=== PATIENT | female | born 1960 | race Hispanic/Latino ===

== ENCOUNTER 2023-12-18 03:43 | Emergency (ER) | payer MEDICARE ==
[~2023-12-18] VITALS: Ht 160 cm; Wt 82.6 kg
[2023-12-18 03:45] VITALS: TEMP 97.7
[2023-12-18 04:20] LABS: BASOPHILS # (AUTO) 0.05 K/uL (0.00-0.20); BASOPHILS % (AUTO) 0.7 % (0.0-5.0); EOSINOPHILS # (AUTO) 0.17 K/uL (0.00-0.70); EOSINOPHILS % (AUTO) 2.3 % (0.0-8.0); HEMATOCRIT 40.5 % (36-48); IMMATURE GRANULOCYTE ABSOLUTE 0.02 K/uL (0-1); LYMPHOCYTES # (AUTO) 2.2 K/uL (1.0-4.8); LYMPHOCYTES % (AUTO) 29.5 % (21.0-51.0); MEAN CORPUSCULAR HEMOGLOBIN 26.9 pg (27.0-33.0); MEAN CORPUSCULAR HGB CONC 33.6 g/dL (32.0-36.0); MEAN CORPUSCULAR VOLUME 80.2 fL (79-99); MONOCYTES # (AUTO) 0.5 K/uL (0.1-1.0); MONOCYTES % (AUTO) 6.7 % (3.0-13.0); NEUTROPHILS # (AUTO) 4.5 K/uL (1.8-7.7); NEUTROPHILS % (AUTO) 60.5 % (40.0-77.0); PLATELET COUNT (AUTO) 314 K/uL (130-400); RED BLOOD CELL COUNT(AUTO) 5.05 MIL/uL (4.00-5.50); RED CELL DISTRIBUTION WIDTH 12.8 % (11.0-15.5); WHITE BLOOD COUNT (AUTO) 7.5 K/uL (4.8-10.8)
[2023-12-18] MEDS: LACTATED RINGERS 1000ML 1,000 ML IV ONE (04:22)
[2023-12-18] MEDS: PANTOPrazole 40 MG/VIAL IVP ONE (04:22)
[2023-12-18 04:28] LABS: CREATININE 0.7 mg/dL (0.5-1.0); POTASSIUM 3.6 mmol/L (3.5-5.1)
[2023-12-18 04:30] LABS: INR <= 0.93 (0.85-1.15); PROTHROMBIN TIME 10.1 SEC (9.6-11.6)
[2023-12-18 04:31] LABS: PARTIAL THROMBOPLASTIN TIME 26.7 SEC (26.3-35.5)
[2023-12-18 04:33] LABS: MAGNESIUM 1.9 mg/dL (1.80-2.40)
[2023-12-18 05:16] LABS: B-TYPE NATRIURETIC PEPTIDE 58 pg/mL (0-100)
[2023-12-18 06:32] LABS: APPEARANCE,URINE CLEAR (CLEAR); BILIRUBIN,URINE NEGATIVE (NEGATIVE); COLOR,URINE LIGHT-YELLOW (YELLOW); GLUCOSE, URINE (UA) NEGATIVE (NEGATIVE); KETONES,URINE NEGATIVE (NEGATIVE); LEUKOCYTE ESTERASE ,URINE NEGATIVE Leu/uL (NEGATIVE); NITRATE,URINE NEGATIVE (NEGATIVE); OCCULT BLOOD,URINE NEGATIVE (NEGATIVE); PH,URINE 5.5 (5.0-8.0); PROTEIN,URINE NEGATIVE (NEGATIVE); UROBILINOGEN,URINE 0.2 mg/dL (0.2-1.0)
[2023-12-18 06:39] LABS: ADD UA MICROSCOPIC NO
[2023-12-18] MEDS ORDERED: PANT40TA55 PO (06:45)
[2023-12-18 06:58] VITALS: BP 127/60; PULSE 55; RESP 18; O2SAT 96
== END 2023-12-18 07:11 | disposition home or self-care (01) ==
LOC: EDH 03:43
DX: K21.9 Gastro-esophageal reflux disease without esophagitis (principal); E86.0 Dehydration; E11.9 Type 2 diabetes mellitus without complications; E78.00 Pure hypercholesterolemia, unspecified; M19.90 Unspecified osteoarthritis, unspecified site
CPT/HCPCS: 99285; 96374; 71045; 96361; 82550; 83735; 84484 ×2; 80048; 83880; 85025; 85610; 85730; 81003; 36415; 93005; J7120; J2470

== ENCOUNTER 2025-01-13 22:28 | Emergency (ER) | payer MEDICARE, OTHER ==
[~2025-01-13] VITALS: Ht 160 cm; Wt 85.7 kg
[~2025-01-13 22:28] MED LIST: PANT40TA55 PO
[2025-01-13 22:59] LABS: IMMATURE GRANULOCYTE ABSOLUTE 0.05 K/uL (0-1); NUCLEATED RED BLOOD CELLS 0.0 % (0.0-0.19); PLATELET COUNT (AUTO) 295 K/uL (130-400); RED BLOOD CELL COUNT(AUTO) 4.80 MIL/uL (4.00-5.50); RED CELL DISTRIBUTION WIDTH 13.0 % (11.0-15.5); WHITE BLOOD COUNT (AUTO) 8.9 K/uL (4.8-10.8)
[2025-01-13 23:13] LABS: CREATININE 0.8 mg/dL (0.5-1.0); GLOMERULAR FILTR. RATE CALC 83.0 mL/min (>90); GLUCOSE,RANDOM 155.0 mg/dL (70-105); SODIUM SERUM 134.0 mmol/L (136-145); UREA NITROGEN, BLOOD 18.0 mg/dL (7-18)
[2025-01-13 23:16] LABS: INR 0.96 (0.85-1.15)
[2025-01-13 23:17] LABS: APPEARANCE,URINE CLEAR (CLEAR); GLUCOSE, URINE (UA) NEGATIVE (NEGATIVE); LEUKOCYTE ESTERASE ,URINE NEGATIVE Leu/uL (NEGATIVE); NITRATE,URINE NEGATIVE (NEGATIVE); OCCULT BLOOD,URINE NEGATIVE (NEGATIVE)
[2025-01-13 23:21] LABS: ADD UA MICROSCOPIC NO
--- NOTE | 2025-01-13 23:23 | HMCIMG ---
EXAM: CR Chest, 1 view. CLINICAL HISTORY: Chest pain. COMPARISON: None. FINDINGS: The lungs show no infiltration or other acute findings. Mild prominence of bilateral bronchovascular markings. No pleural effusion or pneumothorax. The cardio mediastinal silhouette is within normal limits. No acute osseous abnormality. Fixation hardware in the lower cervical spine. IMPRESSION: Mild prominence of bilateral bronchovascular markings could be secondary to bronchitis or vascular congestion. /[place]
[2025-01-13] MEDS ORDERED: IOHEXOL-350 50ML VIAL IV ONE (23:39)
[2025-01-14] MEDS ORDERED: IOHEXOL-350 75 ML VIAL IV ONE (00:23)
[2025-01-14] MEDS ORDERED: IOHEXOL-350 50ML VIAL IV ONE (00:24)
--- NOTE | 2025-01-14 00:39 | ERN ---
General Chief Complaint: Palpitations Stated Complaint: C/O PALPITATIONS Time Seen by MD: 22:35 History of Present Illness Initial Comments 64-year-old female history of diabetes presents for palpitations. Patient reports that over the last month or so she has had multiple episodes of palpitations in the center of the chest. Today she had an episode that lasted about an hour. She had chest pain with it. She felt dizzy. She had felt some pain in the left arm. Symptoms have resolved. She went to her primary doctor to get worked up for this recently, and she was referred to Cardiology as an outpatient. She denies any weight loss, fevers, vomiting, diarrhea, syncopal episodes, or swelling. Denies any drug abuse. Denies anxiety symptoms. Allergies: Coded Allergies: No Known Allergies (Unverified Allergy, Unknown, 12/18/23) Home Meds Active Scripts Pantoprazole Sodium (Protonix) 40 Mg Ectab, 40 MG PO DAILY for 30 Days, #30 TAB.EC Prov:SHWETA OLIVARES MD 12/18/23 Past Medical History Past Medical History: Diabetes-Type II Past Surgical History: None ROS Dictation CONSTITUTIONAL: No chills, no fever, no weakness, no diaphoresis, no malaise. HEAD/FACE: No signs of trauma. EENT: No eye pain, no blurred vision, no tearing, no double vision, no ear pain, no ear discharge, no nose pain, no nasal congestion, no throat pain, no throat swelling, no mouth pain. RESPIRATORY: No cough, no orthopnea, no SOB, no stridor, no wheezing. CARDIOVASCULAR: Palpitation GASTROINTESTINAL/ABDOMINAL: No abdominal pain, no constipation, no diarrhea, no nausea, no vomiting. GENITOURINARY: No abnormal discharge, no dysuria, no frequent urination, no hematuria. No complaints of pain in the genitals. MUSCULOSKELETAL: No back pain, no gout, no joint pain, no joint swelling, no muscle pain, no muscle stiffness, no neck pain. INTEGUMENTARY: No change in color, no change in hair/nails, no dryness, no lesion, no lumps, no rash. NEUROLOGICAL/PSYCH: No anxiety, not depressed, no emotional problem, no headache, no numbness, no pre-existing deficit, no history of seizures, no tremors, no weakness. HEMATOLOGIC/LYMPHATIC: Not anemic, no history of blood clots, no apparent b leeding, no bruising, glands not swollen. All Systems Negative, Except as Noted. Physical Exam Physical Exam Dictation VITAL SIGNS: Reviewed. GENERAL APPEARANCE: Alert, oriented x3, no acute distress, obese. HEAD AND FACE: Non-traumatic. EYES: PERRL, pink conjunctivas, eyelid no trauma, anterior chamber clear. EARS: Pinnas intact and no signs of trauma or erythema. Ear canals clear and no discharge. TMs no erythema. NOSE: No discharge, no bleeding. OROPHARYNX: Mouth normal, teeth no caries, tongue pink. Pharynx clear, no erythema. Tonsils no exudates, no abscesses noted. Mucous membrane moist. NECK: Supple, non-tender, no thyromegaly, no masses, no JVD, no bruits. BREAST: Deferred. CHEST: No tenderness, no crepitus, no paradoxical movement, no retractions. LUNGS: Clear, well-ventilated, symmetric, no rales, no wheezing, no rhonchi, no stridor, good breath sounds bilaterally. HEART: Regular rate, regular rhythm, no murmur, no gallops. VASCULAR: No peripheral edema. ABDOMEN: Soft, positive bowel sounds, nondistended, no guarding, nontender, no rebound, no masses no hepatomegaly, no splenomegaly, no Ag's sign, no hernias. RECTAL: Deferred. GENITAL: Deferred. NEUROLOGICAL: Normal speech, gross motor function intact, gross sensory function intact. MUSCULOSKELETAL: Neck nontender, full range of motion, back nontender, full ra nge of motion. EXTREMITIES: Nontender, full range of motion. SKIN: Color pink, dry, no turgor, no rash, no lacerations, no abrasions, no contusions. LYMPHATICS: Deferred. Results Laboratory and Microbiology Lab and Micro Result Laboratory Tests Test 01/13/25 22:42 01/13/25 23:04 01/14/25 00:45 White Blood Count 8.9 K/uL (4.8-10.8) Red Blood Count 4.80 MIL/uL (4.00-5.50) Hemoglobin 12.7 g/dL (12.0-16.0) Hematocrit 38.2 % (36-48) Mean Corpuscular Volume 79.6 fL (79-99) Mean Corpuscular Hemoglobin 26.5 pg (27.0-33.0) L Mean Corpuscular Hemoglobin Concent 33.2 g/dL (32.0-36.0) Red Cell Distribution Width 13.0 % (11.0-15.5) Platelet Count 295 K/uL (130-400) Mean Platelet Volume 10.0 fL (7.5-10.5) Immature Granulocyte % (Auto) 0.6 % (0-1) Neutrophils (%) (Auto) 58.4 % (40.0-77.0) Lymphocytes (%) (Auto) 31.4 % (21.0-51.0) Monocytes (%) (Auto) 7.1 % (3.0-13.0) Eosinophils (%) (Auto) 1.8 % (0.0-8.0) Basophils (%) (Auto) 0.7 % (0.0-5.0) Neutrophils # (Auto) 5.2 K/uL (1.8-7.7) Lymphocytes # (Auto) 2.8 K/uL (1.0-4.8) Monocytes # (Auto) 0.6 K/uL (0.1-1.0) Eosinophils # (Auto) 0.16 K/uL (0.00-0.70) Basophils # (Auto) 0.06 K/uL (0.00-0.20) Absolute Immature Granulocyte (auto 0.05 K/uL (0-1) Nucleated Red Blood Cells 0.0 % (0.0-0.19) Erythrocyte Sedimentation Rate 39 MM/HR (0-30) H Prothrombin Time 10.2 SEC (9.6-11.6) Prothromb Time International Ratio 0.96 (0.85-1.15) Activated Partial Thromboplast Time 26.5 SEC (26.3-35.5) D-Dimer Quantitative (PE/DVT) 548 ng/mL (0-500) *H Sodium Level 134 mmol/L (136-145) L Potassium Level 3.7 mmol/L (3.5-5.1) Chloride Level 100 mmol/L (101-111) L Carbon Dioxide Level 28 mmol/L (21-32) Blood Urea Nitrogen 18 mg/dL (7-18) Creatinine 0.8 mg/dL (0.5-1.0) Glomerular Filtration Rate Calc 83 mL/min (>90) Random Glucose 155 mg/dL (70-105) H Total Calcium 8.6 mg/dL (8.5-10.1) Magnesium Level 1.80 mg/dL (1.80-2.40) Troponin I High Sensitivity 6 ng/L (4-50) 8 ng/L (4-50) C-Reactive Protein, Quantitative 16.80 mg/L (0.5-3.0) H B-Type Natriuretic Peptide 53 pg/mL (0-100) Thyroid Stimulating Hormone (TSH) 2.75 uIU/mL (0.36-3.74) Urine Color COLORLESS (YELLOW) Urine Appearance CLEAR (CLEAR) Urine pH 6.0 (5.0-8.0) Urine Specific [place] 1.002 (1.001-1.031) Urine Protein NEGATIVE mg/dL (NEGATIVE) Urine Glucose (UA) NEGATIVE mg/dL (NEGATIVE) Urine Ketones NEGATIVE mg/dL (NEGATIVE) Urine Occult Blood NEGATIVE (NEGATIVE) Urine Nitrate NEGATIVE (NEGATIVE) Urine Bilirubin NEGATIVE mg/dL (NEGATIVE) Urine Urobilinogen 0.2 mg/dL (0.2-1.0) Urine Leukocyte Esterase NEGATIVE Fabricio/uL MDM CC: Palpitations, chest discomfort, dizziness, intermittent episodes Historian: Patient Comorbidities: Diabetes Limitations by social determinants of health: None Differential diagnosis: Arrhythmia, thyroid abnormality, electrolyte abnormality, anemia, ACS, pulmonary embolism, other EKG: Sinus rhythm, rate 73, normal axis, good R-wave progression, intervals are stable. No STEMI. Independently interpreted by me. Labs: No leukocytosis, no anemia. Coags are stable. Electrolytes are unremarkable. CRP and sed rate are mildly elevated. Thyroid normal. BNP normal. Troponin x2 normal. Urinalysis normal. Chest x-ray is unremarkable per my independent interpretation. CT angiogram unremarkable for pulmonary embolus. No major abnormalities. Patient was monitored on telemetry for about 3 hours. No further episodes. Pain-free. Asymptomatic. No signs of ACS. HEART score 2, normal troponins. I suspect the patient may be happened night paroxysmal arrhythmia. Does not appear to be life-threatening at this time. Patient is already being worked up as an outpatient. She has a scheduled appointment with [facility] cardiology. We will discharge the patient recommend she follows up with this. We will recommend return to the emergency department as needed. ED Course Orders Procedure Category Date Status Time 12 Lead Ekg Tracing- EKG 01/13/25 Logged Technical 22:38 Cbc With Differential LAB 01/13/25 Complete 22:40 Prothrombin Time With LAB 01/13/25 Complete INR 22:40 Chest 1vw RAD 01/13/25 Resulted 22:40 12 Lead Ekg Tracing- EKG 01/13/25 Logged Technical 22:40 Magnesium LAB 01/13/25 Complete 22:40 Troponin I High LAB 01/13/25 Complete Sensitivity 22:40 Partial LAB 01/13/25 Complete Thromboplastin Time 22:40 Basic Metabolic Panel LAB 01/13/25 Complete 22:40 B-Type Natriuretic LAB 01/13/25 Complete Peptide 22:40 D-Dimer LAB 01/13/25 Complete 22:58 Erythrocyte Sed Rate LAB 01/13/25 Complete 22:58 Crp Quantitative LAB 01/13/25 Complete 22:42 Thyroid Stimulating LAB 01/13/25 Complete Hormone 22:42 Urinalysis Profile LAB 01/13/25 Complete 23:10 Ct Chest Pe Protocol CT 01/13/25 Resulted Wwo Cont 23:39 Iohexol (Omnipaque) PHA 01/14/25 Complete 00:23 Iohexol (Omnipaque) PHA 01/14/25 Complete 00:24 Troponin I High LAB 01/14/25 Complete Sensitivity 00:35 Lorazepam 2 Mg PHA 01/14/25 Complete (Ativan) 01:00 Current Medications Medications (Trade) Dose Ordered Sig/Mathew Route PRN Reason Start Time Stop Time Status Last Admin Dose Admin Iohexol (Omnipaque) 50 ml STK-MED ONCE IV 01/14/25 00:24 01/14/25 00:25 DC Iohexol (Omnipaque) 75 ml STK-MED ONCE IV 01/14/25 00:23 01/14/25 00:23 DC Lorazepam (AtiVAN) 1 mg ONCE ONCE IVP 01/14/25 01:00 01/14/25 01:03 DC 01/14/25 01:07 Vital Signs Date Time Temp Pulse Resp B/P (MAP) Pulse Ox O2 Delivery O2 Flow Rate FiO2 01/13/25 22:42 98.8 75 18 128/66 98 Room Air* 0 21 01/13/25 22:30 97.3 89 20 169/70 99 Room Air DX & DISP Disposition: Discharge Departure Impression: Primary Impression: Palpitations Condition: Stable Additional Instructions: There are no dangerous findings on your workup here today. Your EKG is normal. You have had no signs of arrhythmias here in the emergency department. Your blood work (CBC with differential, metabolic panel, magnesium level, thyroid studies, troponin x2, coagulation studies) is unremarkable. Your inflammatory markers (CRP, ESR, D-dimer) is mildly elevated. There are no other signs of infection or major abnormalities. Chest x-ray is normal. The CT angiogram of your chest is unremarkable. As we discussed, continue with your outpatient workup. You likely need a referral to Cardiology, and evaluation with a Holter monitor. Please return to the emergency department if you have any concerning symptoms such as severe pain, episodes of passing out, prolonged episodes of palpitations with the chest pain, or any other concerning symptom. Referrals: JOSUE ZAARGOZA MD (PCP) KAEL PIMENTEL DO Jan 14, 2025 00:39
--- NOTE | 2025-01-14 02:17 | HMCIMG ---
EXAM: CTA examination of the chest without and with contrast. CLINICAL HISTORY: Rule out pulmonary embolism. TECHNIQUE: Thin collimated axial CTA images of the chest were obtained, and sagittal and coronal reformatted images were also submitted. CT scan is done according to ALARA (As Low as Reasonably Achievable). COMPARISON: None provided. FINDINGS: The lungs are clear. No pleural effusions. No pericardial effusion. The heart size is within normal limits. No thoracic aortic aneurysm or dissection. No filling defect or pulmonary thromboembolism. No axillary, supraclavicular, or mediastinal lymphadenopathy. Mildly elevated right hemidiaphragm. Limited views of the upper abdomen demonstrate a lobulated hepatic contour and hepatic asteatosis, concerning chronic liver parenchymal disease. No acute or suspicious osseous abnormality. IMPRESSION: No pulmonary thromboembolism. No acute cardiopulmonary process. Limited views of the upper abdomen demonstrate a lobulated hepatic contour and hepatic asteatosis, concerning chronic liver parenchymal disease. /[place]
[2025-01-14 02:27] VITALS: BP 139/65; PULSE 70; RESP 18; TEMP 98.8; O2SAT 100
--- NOTE | 2025-01-14 04:36 | EKG ---
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
== END 2025-01-14 02:35 | disposition home or self-care (01) ==
LOC: EDH 22:28
DX: R00.2 Palpitations (principal); E11.9 Type 2 diabetes mellitus without complications; Z79.899 Other long term (current) drug therapy; Z79.01 Long term (current) use of anticoagulants
CPT/HCPCS: 99285; 71270; 71045; 84443; 83735; 84484 ×2; 80048; 83880; 85025; 85378; 85610; 85730; 85651; 86140; 81003; 36415; 93005; 96374; Q9967; J2060

== ENCOUNTER 2025-01-20 16:09 | Observation (INO) | payer OTHER ==
[~2025-01-20] VITALS: Ht 160 cm; Wt 82.8 kg
--- NOTE | 2025-01-20 18:45 | NUR ---
PT IS C/O PAPLPITATIONS. HR 63, BP 157/71, SPO2 98, RR 19.
[2025-01-20] MEDS ORDERED: METF-444 PO (18:57)
[2025-01-20] MEDS ORDERED: VALA500T42 PO (18:57)
[2025-01-20] MEDS ORDERED: ROSU5TAB51 PO (18:57)
[2025-01-20] MEDS ORDERED: LETR2.5T7 PO (18:57)
--- NOTE | 2025-01-20 19:38 | NUR ---
PT CARE ASSUMED AT THIS TIME
--- NOTE | 2025-01-20 21:16 | HP ---
ADMISSION HISTORY AND PHYSICAL Admit to medical floor. ADMITTING DIAGNOSIS: Chest pain. HISTORY OF PRESENT ILLNESS: This is a 64-year-old woman I have taken care of since 2007. I originally saw her for rheumatoid arthritis, but later on she was diagnosed in 2019 with carcinoma of breast. She had adjuvant therapy and complete remission and has been doing well ever since. She recently went to the ER at [facility] because of progressive left-sided chest pressure and palpitations. Did a CTA of the chest which was negative, EKG was said to be negative and she was sent home. She presents to my office today with crescendo angina symptoms. She had pressure in the substernal area. She was short of breath. She was tachycardic. I saw her. I called her doctors, Dr. Auguste [facility]. Dr. Remy responded and I told him my concerns and I recommended the patient we send her to the hospital for admission and more thorough evaluation of her heart. PAST MEDICAL HISTORY: Includes rheumatoid arthritis, includes breast cancer. PAST SURGICAL HISTORY: She has had a remote thoracotomy for a lung puncture. She has had breast surgery by Dr. Irwin in 2019. MEDICATIONS: See intake sheet. ALLERGIES: IBUPROFEN. FAMILY HISTORY: Mother had thyroid cancer. SOCIAL HISTORY: No pregnancies. No children. Single. Lives with other sisters. She used to work for [employer]. REVIEW OF SYSTEMS: HEENT: Negative. CARDIOVASCULAR: Positive as noted above. PULMONARY: Shortness of breath. GASTROINTESTINAL: Negative for bowel sounds. GENITOURINARY: Negative for hematuria or dysuria PHYSICAL EXAMINATION: GENERAL: Exam in my office showed a young woman. VITAL SIGNS: Blood pressure 175/88, pulse 98, respirations 18. HEENT: Benign. NECK: Supple without adenopathy or bruit. CHEST: Clear. No rales, rhonchi or wheezing. HEART: Showed a regular rate and rhythm. Normal S1, S2. ABDOMEN: Soft. BREASTS: Showed stable breast surgery. LABORATORY DATA: CBC: WBC 7.8, hemoglobin 12, platelets 298,000. IMPRESSION: I am concerned about the patient having crescendo chest pain, which symptomatology suggests angina to me despite the negative CTA, negative EKG at [facility]. She is quite frightened by the symptoms. Breast cancer, in remission; remote rheumatoid arthritis. PLAN: I recommended we admit her to [facility]. I personally called Dr. Opal Remy on for the [facility] and also a greenhouse superintendent. I met her over there. Do a rule out for myocardial infarction with serial EKG, cardiac enzymes, 2D echocardiogram, harvest contractor. Consult the [facility]. Further recommendations to follow. TID: [id number] RECEIPT: [id number]
[2025-01-21] VITALS (7 sets, daily range): BP systolic 129–150; BP diastolic 59–78; PULSE 65–89; RESP 16–19; TEMP 97.7–98.4; O2SAT 95–98
--- NOTE | 2025-01-21 01:17 | NUR ---
REPORT GIVEN TO KIMBERLY NG AT THIS TIME
[2025-01-21] MEDS: 0.9%NACL 1000ML 1,000 ML IV SCH (02:06)
[2025-01-21 02:09] LABS: IMMATURE GRANULOCYTE ABSOLUTE 0.02 K/uL (0-1); NUCLEATED RED BLOOD CELLS 0.0 % (0.0-0.19); PLATELET COUNT (AUTO) 291 K/uL (130-400); RED BLOOD CELL COUNT(AUTO) 4.65 MIL/uL (4.00-5.50); RED CELL DISTRIBUTION WIDTH 13.2 % (11.0-15.5); WHITE BLOOD COUNT (AUTO) 6.9 K/uL (4.8-10.8)
[2025-01-21 02:17] LABS: CREATININE 0.6 mg/dL (0.5-1.0); GLOMERULAR FILTR. RATE CALC 101.0 mL/min (>90); GLUCOSE,RANDOM 176.0 mg/dL (70-105); SODIUM SERUM 137.0 mmol/L (136-145); UREA NITROGEN, BLOOD 13.0 mg/dL (7-18)
[2025-01-21 02:24] LABS: ASPARTATE AMINOTRANSFERASE 38.0 U/L (10-37); TOTAL PROTEIN, SERUM 7.6 g/dL (6.0-8.3)
[2025-01-21] MEDS ORDERED: CALC-866 PO (02:51)
[2025-01-21] MEDS ORDERED: VITA-348 PO (02:51)
[2025-01-21] MEDS ORDERED: BIOT10005 PO (02:51)
[2025-01-21] MEDS: REGADENOSON 0.4 MG/5 ML PF SYG IVP ONE (11:30)
--- NOTE | 2025-01-21 11:33 | NUR ---
DCP:HOME Pt currently lives at home with her sister Radha Post [phone]. Pt does not report any DME, home health, or provider services. Pt states that she is able to complete ADLs independently. PCP is Dr. Diaz and uses [facility] for any RX needs. At DC pt will want to go home and family can assist with transportation.
--- NOTE | 2025-01-21 11:53 | EKG ---
[facility] Test Date: 2025-01-21 Test Time: 07:04:57 Pat Name: GUADALUPE POLLOCK Department: [facility] Room: 431 1 Gender: F Site Manager: GURVINDER : 1960 Requested By: KRZYSZTOF BOWLES Order Number: [id number] Reading MD: Salma Jj Measurements Intervals [place] Rate: 63 P: 2 WI: 152 QRS: -22 QRSD: 94 T: 16 QT: 402 QTc: 411 Interpretive Statements Normal sinus rhythm Compared to ECG 01/13/2025 22:38:53 No significant changes Electronically Signed On 01-23-2025 12:39:09 POWER CUTTING MACHINE OPERATOR by Salma Jj Please click the below link to view image of tracing.
--- NOTE | 2025-01-21 13:42 | CONS ---
[facility] CARDIOLOGY CONSULTATION NOTE Date Patient Seen: Jan 21, 2025 Time of Visit: 13:25 Reason for Consultation: [ ] History of Present Illness: [64-year-old female patient with a past medical history of breast cancer status post lumpectomy, following with Dr. Abrams, hypertension, type 2 diabetes mellitus, hyperlipidemia, who presents to the emergency department endorsing ongoing palpitations and chest pressure sensation , her presenting ECG sinus rhythm, no ST-T wave abnormalities, with no acute ischemia, patient is endorsing two episodes of rapid onset palpitations since she presented to the hospital associated with the anterior nonradiating chest pressure with a severity of 4/10, troponin was negative x 3 , pending 2D echocardiogram results. The patie nt denies any prior history of Myocardial infarction/CAD/stroke , she is a never smoker with no family history of premature CAD , the patient denies any prior symptoms to this event, she states that her symptoms onset were 1 month ago , intermittently, not associated with the exertion with no alleviating or aggravating factors, no telemetry events have been noted. Cardiology was c onsulted for ACS rule out] Past Medical History: [ Refer to chart] Past Surgical History: [Refer to HPI] Family History: [ Refer to HPI] Social History: [Refer to HPI ] Habits: [Never] smoker. [Denies] alcohol consumption. [Denies] illicit drug use Review of Systems: A review of12 point system was negative set per HPI Physical Examination: GENERAL: [No acute distress.] HEAD: [Normal with no signs of head trauma.] EYES: [PERRLA, EOMI, conjunctiva and sclera normal.] ENT: [Hearing grossly intact, normal oropharynx.] NECK: [Supple without JVD. There is no tenderness, lymphadenopathy, or masses. N o thyromegaly. Normal carotid upstrokes without bruits.] LUNGS: [Clear breath sounds bilaterally. No wheezes, or rhonchi.] HEART: [Normal rate and rhythm. Normal S1 and S2 without murmurs, gallop or rub.] VASC: [Peripheral pulses +2 bilaterally.] ABD: [Bowel sounds normal, soft, nontender, no masses, no organomegaly. No audible bruits.] : [Not examined] LYMPH: [No lymphadenopathy noted.] EXT: [No clubbing, cyanosis or edema.] SKIN: [No rashes or lesions noted.] NEURO: [Awake, alert, and oriented x3. No focal sensory or strength deficits noted.] Vital Signs (last 8hr) Date Time Temp Pulse Resp B/P (MAP) Pulse Ox O2 Delivery O2 Flow Rate FiO2 01/21/25 08:36 97.9 65 16 129/76 96 Room Air 01/21/25 08:00 96 Room Air* 0 21 Laboratory: [ ] Hematology Labs: Test 01/21/25 01:59 Range/Units White Blood Count 6.9 4.8-10.8 K/uL Red Blood Count 4.65 4.00-5.50 MIL/uL Hemoglobin 12.4 12.0-16.0 g/dL Hematocrit 37.6 36-48 % Mean Corpuscular Volume 80.9 79-99 fL Mean Corpuscular Hemoglobin 26.7 L 27.0-33.0 pg Mean Corpuscular Hemoglobin Concent 33.0 32.0-36.0 g/dL Red Cell Distribution Width 13.2 11.0-15.5 % Platelet Count 291 130-400 K/uL Mean Platelet Volume 10.2 7.5-10.5 fL Immature Granulocyte % (Auto) 0.3 0-1 % Neutrophils (%) (Auto) 56.4 40.0-77.0 % Lymphocytes (%) (Auto) 30.9 21.0-51.0 % Monocytes (%) (Auto) 8.3 3.0-13.0 % Eosinophils (%) (Auto) 3.2 0.0-8.0 % Basophils (%) (Auto) 0.9 0.0-5.0 % Neutrophils # (Auto) 3.9 1.8-7.7 K/uL Lymphocytes # (Auto) 2.1 1.0-4.8 K/uL Monocytes # (Auto) 0.6 0.1-1.0 K/uL Eosinophils # (Auto) 0.22 0.00-0.70 K/uL Basophils # (Auto) 0.06 0.00-0.20 K/uL Absolute Immature Granulocyte (auto 0.02 0-1 K/uL Nucleated Red Blood Cells 0.0 0.0-0.19 % Chemistry Labs: Test 01/21/25 10:27 01/21/25 05:27 01/21/25 01:59 Range/Units Troponin I High Sensitivity 5 4-50 ng/L Whole Blood Glucose 204 H 70-110 MG/DL Sodium Level 137 136-145 mmol/L Potassium Level 3.6 3.5-5.1 mmol/L Chloride Level 101 101-111 mmol/L Carbon Dioxide Level 30 21-32 mmol/L Blood Urea Nitrogen 13 7-18 mg/dL Creatinine 0.6 0.5-1.0 mg/dL Glomerular Filtration Rate Calc 101 >90 mL/min Random Glucose 176 H 70-105 mg/dL Total Calcium 8.8 8.5-10.1 mg/dL Total Bilirubin 0.4 0.2-1.0 mg/dL Aspartate Amino Transf (AST/SGOT) 38 H 10-37 U/L Alanine Aminotransferase (ALT/SGPT) 53 12-78 U/L Alkaline Phosphatase 386 H 50-136 U/L Total Protein 7.6 6.0-8.3 g/dL Albumin 3.3 L 3.5-5.0 g/dL Diagnostics / Radiology: [Copy/Paste Echos/Imaging Report here] Assessment: [Hypertension Hyperlipidemia Type 2 diabetes mellitus History of breast cancer status post lumpectomy Palpitations ] Plan: [ #Chest pain The patient presented to 's office endorsing ongoing chest pain and palpitations Described as anterior nonradiating chest pressure with a severity of 4/10, not associated with the exertion with no alleviating or aggravating factors She states that her symptoms onset were 1 month ago , intermittently Presenting ECG with sinus rhythm, no acute ischemia, ACS has been ruled out, troponin is negative x3 No telemetry events have been noted. We will continue to keep on telemetry and monitor/replace electrolytes as needed Patient denies any prior history of Myocardial infarction/CAD/stroke, and never smoker] We will order a 2D echocardiogram to assess systolic and valvular function We will order a Lexiscan stress test to rule out ischemia Thank you for this consult cardiology will continue to follow along, formal recommendations pending 2D echocardiogram and Lexiscan stress test results Alvarez morelos MD ATTESTATION BY PHYSICIAN I have seen and examined the patient, reviewed the above documentation, participated in medical decision making, made necessary modifications, and agree with the treatment plan as documented by my mid-level provider above. MD TALISHA Abraham JAMES R MD Jan 21, 2025 13:42
--- NOTE | 2025-01-21 18:04 | HMCSR ---
APPROVED REPORT Height: 5 ft 3in Weight: 186 lbs TEST INDICATIONS Chest Pain The imaging protocol used to acquire images was Rest Tc-99m/stress Tc-99m 1 day Consent: The procedure was explained and understood by the patient. Informerd consent was witnessed by Abby Post RN First, low dose rest was performed then high dose stress. RESTING DATA: The resting ekg shows: NSR Rest SPECT myocardial perfusion imaging was performed in supine position minutes following the intravenous injection of 11 mCi of Tc-99 Sestamibi. Time of rest injection: 07:38: Date: 01/21/2025 Time of rest imagin:00: Date: 01/21/2025 PHARMACOLOGIC STRESS: Pharmacologic stress test was performed by injecting regadenoson 0.4 mg IV push followed by the intravenous injection of 29 mCi of Tc-99 Sestamibi. Time of stress injection: 09:54: Date: 01/21/2025 Time of stress imagin:15: Date: 01/21/2025 Heart Rate at time of stress injection: 78 bpm. STRESS DETAILS Reason for Termination: Infusion complete Stress Symptoms: Tingling in Extremities Max HR Achieved: 112 bpm % of APMHR Achieved: 83 Max Blood Pressure: 179/65 mmHg Stress ECG: NSR Study quality was good. Lung uptake was Normal. Artifact: No artifact IMPRESSION Normal pharmacologic nuclear stress test. Conclusion Normal perfusion. TID 1.04. LVEF 64%.
--- NOTE | 2025-01-21 18:08 | HMCSR ---
APPROVED REPORT EXAM: Two-dimensional and M-mode echocardiogram with Doppler and color Doppler. INDICATION ICD: Chest Pain 2D Dimensions RVDd 3.9 cm LVEF(%) 67.2 (>50%) LVED Vol(simp.) 72.0 mL IVSd 0.9 (0.7-1.1cm) FS(%) 37 % LVES Vol(simp.) 20.0 mL LVDd 4.6 (3.8-5.6cm) LA (2D) 4.7 (1.6-4.0cm) LVEF(%, simp.) 72 % PWd 0.7 (0.7-1.1cm) Ao Root(2D) 3.0 (2.0-3.7cm) LA ESV INDEX (BP) 21.92 mL/m2 IVSs 1.0 cm LVOT diam 2.0 (1.8-2.4cm) LVDs 2.9 (2.5-4.0cm) IVC diam 1.5 cm PWs 1.4 cm Deformation Strain Apical 4 -23.7 % Apical 2 -24.9 % Apical 3 -17.6 % Global Strain -22.1 % M-Mode Dimensions EPSS 0.5 cm LA (MM) 4.6 (1.6-4.0cm) Ao Root(MM) 2.6 (2.0-3.7cm) Aortic Valve AoV Vmax 1.7 m/s Ao Peak GR 11.3 mmHg LVOT Vmax 1.2 m/s AoV VTI 0.3 m Ao Mean GR 6.3 mmHg LVOT VTI 0.24 m JACQUIE (VMAX) 2.11 cm2 JACQUIE (VTI) 2.3 cm2 Mitral Valve MV E Vmax 70.8 cm/s DECEL Time 236 ms MV A Vmax 76.5 cm/s P 1/2 T 59 ms E/A ratio 0.9 MVA (PHT) 3.7 cm2 TDI E/E' Medial 10.9 E/E' Lateral 9.0 Medial E' Peak V 6.52 cm/s Lateral E' Peak V 7.86 cm/s Pulmonary Valve PV Vmax 1.3 m/s PV Mean GR 3.4 mmHg PV Peak GR 6.5 mmHg Tricuspid Valve TR Vmax 1.8 m/s RAP (EST) 3 mmHg RVSP 16.6 mmHg TR Peak GR 13.6 mmHg Left Ventricle The left ventricle is normal size. GLS -22.0% There is normal left ventricular wall thickness. The LVEF is > 70%. The left ventricular diastolic function is normal. Right Ventricle The right ventricle is normal size. The right ventricular systolic function is normal. Atria The left atrium size is normal. The right atrium size is normal. Aortic Valve Aortic valve is trileaflet and opens well. No aortic regurgitation is present. There is no aortic valvular stenosis. Mitral Valve The mitral valve is normal in structure. There is trace of mitral valve regurgitation noted. There is no mitral valve stenosis. Tricuspid Valve The tricuspid valve is normal in structure. There is trace of tricuspid valve regurgitation noted. Pulmonic Valve The pulmonary valve is normal in structure. There is trivial pulmonic valvular regurgitation. Great Vessels The aortic root is normal in size. The IVC is normal in size and collapses >50% with inspiration. Pericardium There is no pericardial effusion. Other Information Quality : Fair Conclusion The left ventricle is normal size. The LVEF is > 70%. The left ventricular diastolic function is normal. The right ventricle is normal size. The right ventricular systolic function is normal. The left atrium size is normal. The right atrium size is normal. No valvular pathology. There is no pericardial effusion.
[2025-01-21] MEDS ORDERED: PoTASSium chloRIDE 20MEQ ER 20 MEQ ERTAB PO PRN (18:30)
[2025-01-21] MEDS ORDERED: PoTASSium chl 10% ELIXIR 20MEQ 20 MEQ/15 ML UDCUP PO PRN (18:30)
[2025-01-21] MEDS: VITAMIN E 400 UNIT CAPSULE PO SCH (21:19)
[2025-01-22 03:55] VITALS: BP 121/64; PULSE 66; RESP 18; TEMP 98
[2025-01-22 07:10] VITALS: BP 151/70; PULSE 70; RESP 20; TEMP 98
[2025-01-22] MEDS: LETROZOLE 2.5 MG PO SCH (09:00)
[2025-01-22] MEDS: (Biotin 10,000 MCG) PO SCH (09:00)
[2025-01-22] MEDS: CHOLECALCIFEROL 125 MCG PO SCH (09:00)
[2025-01-22 09:05] VITALS: O2SAT 99
--- NOTE | 2025-01-22 09:56 | PN ---
[facility] CARDIOLOGY PROGRESS NOTE Date Patient Seen: Jan 22, 2025 Time of Visit: 09:52 Interval History: [no acute events overnight , 2Decho revealed LVEF > 65% , with no wall motion or valvualr abnormalities, and Lexiscan stress test was negative for ischemia ] Physical Examination: GENERAL: [No acute distress.] HEAD: [Normal with no signs of head trauma.] EYES: [PERRLA, EOMI, conjunctiva and sclera normal.] ENT: [Hearing grossly intact, normal oropharynx.] NECK: [Supple without JVD. There is no tenderness, lymphadenopathy, or masses. No thyromegaly. Normal carotid upstrokes without bruits.] LUNGS: [Clear breath sounds bilaterally. No wheezes, or rhonchi.] HEART: [Normal rate and rhythm. Normal S1 and S2 without murmurs, gallop or rub.] VASC: [Peripheral pulses +2 bilaterally.] ABD: [Bowel sounds normal, soft, nontender, no masses, no organomegaly. No audible bruits.] : [Not examined] LYMPH: [No lymphadenopathy noted.] EXT: [No clubbing, cyanosis or edema.] SKIN: [No rashes or lesions noted.] NEURO: [Awake, alert, and oriented x3. No focal sensory or strength deficits noted.] Laboratory: [ ] Hematology Labs: Test 01/21/25 01:59 Range/Units White Blood Count 6.9 4.8-10.8 K/uL Red Blood Count 4.65 4.00-5.50 MIL/uL Hemoglobin 12.4 12.0-16.0 g/dL Hematocrit 37.6 36-48 % Mean Corpuscular Volume 80.9 79-99 fL Mean Corpuscular Hemoglobin 26.7 L 27.0-33.0 pg Mean Corpuscular Hemoglobin Concent 33.0 32.0-36.0 g/dL Red Cell Distribution Width 13.2 11.0-15.5 % Platelet Count 291 130-400 K/uL Mean Platelet Volume 10.2 7.5-10.5 fL Immature Granulocyte % (Auto) 0.3 0-1 % Neutrophils (%) (Auto) 56.4 40.0-77.0 % Lymphocytes (%) (Auto) 30.9 21.0-51.0 % Monocytes (%) (Auto) 8.3 3.0-13.0 % Eosinophils (%) (Auto) 3.2 0.0-8.0 % Basophils (%) (Auto) 0.9 0.0-5.0 % Neutrophils # (Auto) 3.9 1.8-7.7 K/uL Lymphocytes # (Auto) 2.1 1.0-4.8 K/uL Monocytes # (Auto) 0.6 0.1-1.0 K/uL Eosinophils # (Auto) 0.22 0.00-0.70 K/uL Basophils # (Auto) 0.06 0.00-0.20 K/uL Absolute Immature Granulocyte (auto 0.02 0-1 K/uL Nucleated Red Blood Cells 0.0 0.0-0.19 % Chemistry Labs: Test 01/22/25 05:13 01/21/25 10:27 01/21/25 01:59 Range/Units Whole Blood Glucose 155 H 70-110 MG/DL Troponin I High Sensitivity 5 4-50 ng/L Sodium Level 137 136-145 mmol/L Potassium Level 3.6 3.5-5.1 mmol/L Chloride Level 101 101-111 mmol/L Carbon Dioxide Level 30 21-32 mmol/L Blood Urea Nitrogen 13 7-18 mg/dL Creatinine 0.6 0.5-1.0 mg/dL Glomerular Filtration Rate Calc 101 >90 mL/min Random Glucose 176 H 70-105 mg/dL Total Calcium 8.8 8.5-10.1 mg/dL Total Bilirubin 0.4 0.2-1.0 mg/dL Aspartate Amino Transf (AST/SGOT) 38 H 10-37 U/L Alanine Aminotransferase (ALT/SGPT) 53 12-78 U/L Alkaline Phosphatase 386 H 50-136 U/L Total Protein 7.6 6.0-8.3 g/dL Albumin 3.3 L 3.5-5.0 g/dL Diagnostics / Radiology: [Copy/Paste Echos/Imaging Report here] Impression and Plan: [ [Hypertension Hyperlipidemia Type 2 diabetes mellitus History of breast cancer status post lumpectomy Palpitations ] Plan: [ #Non cardiac chest pain The patient presented to 's office endorsing ongoing chest pain and palpitations Described as anterior nonradiating chest pressure with a severity of 4/10, not associated with the exertion with no alleviating or aggravating factors She states that her symptoms onset were 1 month ago , intermittently Presenting ECG with sinus rhythm, no acute ischemia, ACS has been ruled out, troponin is negative x3 No telemetry events have been noted. We will continue to keep on telemetry and monitor/replace electrolytes as needed Patient denies any prior history of Myocardial infarction/CAD/stroke, and never smoker] 2Decho revealed LVEF > 65% , with no wall motion or valvular abnormalities Lexiscan stress test was negative for ischemia The patients symptoms are most likely non cardiac , no need for further testing Thank you for this consult cardiology will sign off at this time Alvarez morelos MD] ATTESTATION BY PHYSICIAN I have seen and examined the patient, reviewed the above documentation, parti cipated in medical decision making, made necessary modifications, and agree with the treatment plan as documented by my mid-level provider above. MD TALISHA Abraham JAMES R MD Jan 22, 2025 09:56
--- NOTE | 2025-01-22 10:36 | NUR ---
DISCHARGE PATIENT PER MD. PERIPHERAL IV REMOVED, IV CATHETER INTACT. DISCHARGE INSTRUCTIONS GIVEN TO PATIENTS, NO NEW PRESCRIPTIONS. PATIENT VERBALIZED UNDERSTANDING. PATIENT LEFT VIA WHEELCHAIR TO PRIVATE CAR.
--- NOTE | 2025-01-22 12:17 | PN ---
SUBJECTIVE: The patient had a stress test and an echocardiogram, which were negative. She is awake, alert. Appreciated Dr. Remy's input. She is no longer having the chest pain. PHYSICAL EXAMINATION: GENERAL: Shows a pleasant young woman. VITAL SIGNS: Blood pressure 121/64, pulse 66, respirations 18. CHEST: Clear. ABDOMEN: Soft. IMPRESSION: * Chest pain. Myocardial infarction ruled out, felt not to be cardiac in etiology. * Diabetes. * Hypertension. * Breast cancer. * Palpitations. PLAN: I think she can be discharged home and follow up with us in Cardiology as an outpatient. She agrees with the plan. Labs and medications reviewed. TID: [id number] RECEIPT: [id number]
== END 2025-01-22 10:36 | disposition home or self-care (01) ==
LOC: EDH 16:09 → DIRECT 16:10 → UNDOADMOB 16:10 → DIRECT 16:27 → 4AH 01-21 01:19
PROVIDERS: ADMIT Internal Medicine Hematology & Oncology; ATTEND Internal Medicine Hematology & Oncology
DX: R07.89 Other chest pain (principal); R00.2 Palpitations; E11.9 Type 2 diabetes mellitus without complications; E78.5 Hyperlipidemia, unspecified; C50.919 Malignant neoplasm of unspecified site of unspecified female breast; I10 Essential (primary) hypertension; M06.9 Rheumatoid arthritis, unspecified; F19.90 Other psychoactive substance use, unspecified, uncomplicated; Z79.899 Other long term (current) drug therapy; Z98.890 Other specified postprocedural states
CPT/HCPCS: 96360; 96361; 84484 ×3; 80053; 85025; 82948 ×5; 36415; 93017; 78452; 93306; 93356; 93005; G0378 ×42; G0379; J2785; A9500 ×2